=== PATIENT | female | born 1955 | race African-American/Black ===

== ENCOUNTER → 2019-06-21 | Outpatient (CLI) | payer MEDICARE ==
[2019-06-21 17:36] LABS: BASOPHILS % 0.5 % (0.0-1.0); EOSINOPHILS # (AUTO) 0.3 (0.0-0.4); EOSINOPHILS % 5.7 % (0.0-6.0); HEMATOCRIT 40.2 % (34.2-44.1); HEMOGLOBIN 12.9 g/dL (12.0-16.0); LYMPHOCYTES # (AUTO) 1.8 (1.0-3.2); LYMPHOCYTES % 40.4 % (18.0-39.1); MEAN CORPUSCULAR HEMOGLOBIN 29.1 pg (28-32); MEAN CORPUSCULAR HGB CONC 32.1 g/dL (31-35); MEAN CORPUSCULAR VOLUME 90.7 fL (81-99); MONOCYTES # (AUTO) 0.4 (0.2-0.8); MONOCYTES % 8.5 % (4.4-11.3); NEUTROPHILS % 44.7 % (38.7-80.0); PLATELET COUNT 257 x10e3/uL (140-360); RED BLOOD COUNT 4.43 x10e6/uL (3.6-5.1); RED CELL DISTRIBUTION WIDTH 13.8 % (11.7-14.4)
[2019-06-21 17:55] LABS: ALANINE AMINOTRANSFERASE 16 IU/L (0-55); ALBUMIN 3.7 g/dL (3.5-5.0); ALBUMIN/GLOBULIN RATIO 1.2 (0.8-2.0); ALKALINE PHOSPHATASE 104 IU/L (40-150); ANION GAP 9.5 mmol/L (8-16); BLOOD UREA NITROGEN 10 mg/dL (7-26); BUN/CREATININE RATIO 12 (6-25); CALCIUM 10.5 mg/dL (8.4-10.2); CARBON DIOXIDE 29 mmol/L (22-29); CHLORIDE 106 mmol/L (98-107); CREATININE, SERUM 0.81 mg/dL (0.57-1.11); EST GLOMERULAR FILTRATION RATE > 60 ML/MIN (60-); GLUCOSE 102 mg/dL (74-118); POTASSIUM 3.5 mmol/L (3.5-5.1); SODIUM 141 mmol/L (136-145)
[2019-06-21 18:15] LABS: THYROID STIMULATING HORMONE 1.057 uIU/mL (0.350-4.940)
--- NOTE | 2019-06-22 08:35 | Diagnostic Imaging Report ---
EXAMINATION: CHEST 2 VIEWS INDICATION: Bronchitis COMPARISON: None FINDINGS: LINES/TUBES:None LUNGS:The lungs are well-inflated. No focal consolidation or pulmonary edema. PLEURA:No pleural effusion or pneumothorax. MEDIASTINUM:The cardiomediastinal silhouette appears normal in size and shape. BONES/SOFT TISSUES:No acute osseous injury. Lumbar spinal fusion hardware partially visualized. ABDOMEN:No free air under the diaphragm. IMPRESSION: No focal pneumonia or pulmonary edema. Signed by: Andi rBo MD on 06/22/2019 8:31 AM
== END ==
LOC: RAD 16:37
PROVIDERS: ATTEND Internal Medicine Critical Care Medicine
DX: J42 Unspecified chronic bronchitis (principal); R13.10 Dysphagia, unspecified; Z77.118 Contact with and (suspected) exposure to other environmental pollution; K21.9 Gastro-esophageal reflux disease without esophagitis; Z56.5 Uncongenial work environment
CPT/HCPCS: 36415; 71046; 80053; 82785; 84443; 85025

== ENCOUNTER → 2019-08-08 | Outpatient (CLI) | payer MEDICARE ==
[~2019-08-08] MED LIST: ALBUTEROL SULF 0.083% NEB SOLN 3 ML NEB ONE
== END ==
LOC: RESP 10:40
PROVIDERS: ATTEND Internal Medicine Critical Care Medicine
DX: J42 Unspecified chronic bronchitis (principal); R13.10 Dysphagia, unspecified; K21.9 Gastro-esophageal reflux disease without esophagitis; Z77.118 Contact with and (suspected) exposure to other environmental pollution; Z56.5 Uncongenial work environment
CPT/HCPCS: 94060; 94640; 94727; 94729

== ENCOUNTER → 2020-07-19 | Day surgery (SDC) | payer MEDICARE ==
[2020-07-16 16:59] LABS: BASOPHILS % 0.2 % (0.0-1.0); EOSINOPHILS # (AUTO) 0.3 (0.0-0.4); EOSINOPHILS % 3.8 % (0.0-6.0); HEMATOCRIT 38.1 % (34.2-44.1); LYMPHOCYTES # (AUTO) 1.5 (1.0-3.2); LYMPHOCYTES % 23.1 % (18.0-39.1); MEAN CORPUSCULAR HEMOGLOBIN 28.6 pg (28-32); MEAN CORPUSCULAR HGB CONC 31.5 g/dL (31-35); MEAN CORPUSCULAR VOLUME 90.9 fL (81-99); MONOCYTES # (AUTO) 0.6 (0.2-0.8); MONOCYTES % 9.2 % (4.4-11.3); NEUTROPHILS # (AUTO) 4.1 (2.1-6.9); NEUTROPHILS % 63.5 % (38.7-80.0); PLATELET COUNT 252 x10e3/uL (140-360); RED BLOOD COUNT 4.19 x10e6/uL (3.6-5.1); RED CELL DISTRIBUTION WIDTH 14.2 % (11.7-14.4)
[2020-07-16 17:13] LABS: BLOOD UREA NITROGEN 15 mg/dL (7-26); BUN/CREATININE RATIO 19 (6-25); CALCIUM 9.5 mg/dL (8.4-10.2); CARBON DIOXIDE 26 mmol/L (22-29); CHLORIDE 110 mmol/L (98-107); CREATININE, SERUM 0.78 mg/dL (0.57-1.11); EST GLOMERULAR FILTRATION RATE > 60 ML/MIN (60-); GLUCOSE 85 mg/dL (74-118); SODIUM 142 mmol/L (136-145)
--- NOTE | 2020-07-17 08:40 | Diagnostic Imaging Report ---
Chest, 2 views, 07/16/2020. History: Preop, incontinence. Comparison: 06/21/2019. Findings: The cardiomediastinal silhouette and pulmonary vasculature are within normal limits. The lungs are clear without evidence of consolidation or pleural effusion. Mild degenerative changes are present in the thoracic spine. There are no acute osseous or soft tissue abnormalities. Impression: No acute cardiopulmonary abnormality. Signed by: Raul Baker on 07/17/2020 8:37 AM
[~2020-07-19] MED LIST changes: -ALBUTEROL SULF 0.083% NEB SOLN 3 ML NEB ONE; +BOTULINUM TOXIN TYPE A 100 UNIT VIAL IM ONE; +BUSPIRONE HCL5 MG PO; +CEFTRIAXONE SOD 1 GM/NS 50 ML 50 ML IV ONE; +CLONAZEPAM1 MG PO; +FLOVENT HFA12 G1 INH; +IOPAMIDOL 300MG/ML 50ML INFUS..BTL IV ONE; +LOVASTATIN20 MG PO; +METOPROLOL PO; +MONTELUKAST SOD10 MG PO; +MYRBETRIQ25 MG PO; +OXYBUTYNIN CHLOR5 MG PO; +VENTOLIN HFA18 GM INH
[2020-07-19 09:53] VITALS: BP 111/55
--- NOTE | 2020-07-19 19:18 | Operative Report ---
DATE OF PROCEDURE: 07/19/2020 SURGEON: Aung Cruz MD PREOPERATIVE DIAGNOSIS: Recurrent urge incontinence for maintenance Botox. POSTOPERATIVE DIAGNOSIS: Recurrent urge incontinence for maintenance Botox. PROCEDURE: Cystourethroscopy with Botox injection. ANESTHESIA: General. ESTIMATED BLOOD LOSS: Minimal. COMPLICATIONS: None. INDICATIONS: Ms. Flores is a very pleasant 65-year-old female who has previously had Botox injection for urge incontinence refractory to multiple medication failures. She and I had a long discussion alternatives, risks and benefits. This will be more than six months. She elected to proceed with reinjection. PROCEDURE IN DETAIL: After informed consent was obtained, the patient was taken to the operative suite, placed supine on the operating table, underwent general anesthesia by the anesthesia service. She was placed in the dorsal lithotomy position and sterilely prepped and draped in standard fashion for cystoscopy. A 21-Azeri cystoscope was inserted per urethra. Normal urethra was noted. Panendoscopy of the bladder revealed no tumors and no stones. Both ureteral orifices were in normal anatomic location and position and were seen to efflux clear urine in a grid like fashion on posterior wall. The Botox was injected in a standard fashion with 10 mL and 1 mL flush. There was excellent hemostasis. The bladder was drained. The patient was awakened from anesthesia and transported to the recovery room in excellent condition, no untoward effects noted. MD JACQUEILNE Ibanez/MODL /[id number]
== END | disposition home or self-care (01) ==
LOC: OR 08:23
PROVIDERS: ATTEND Urology
DX: N39.41 Urge incontinence (principal); R00.1 Bradycardia, unspecified; I10 Essential (primary) hypertension; E78.5 Hyperlipidemia, unspecified; F32.9 Major depressive disorder, single episode, unspecified; F41.9 Anxiety disorder, unspecified; Z01.810 Encounter for preprocedural cardiovascular examination; Z01.812 Encounter for preprocedural laboratory examination; Z01.818 Encounter for other preprocedural examination; Z20.828 Contact with and (suspected) exposure to other viral communicable diseases; Z87.891 Personal history of nicotine dependence
CPT/HCPCS: 36415; 52287; 71046; 80048; 85025; 93005; C1758; J0587; J0696; Q9967; U0002